=== PATIENT | male | born 1985 | race Caucasian/White ===

== ENCOUNTER 2022-11-12 14:18 | Emergency (ER) | payer BC ==
[~2022-11-12] VITALS: Ht 177.8 cm; Wt 136.4 kg
[2022-11-12 17:22] LABS: BASO % 0.1 % (0.0-1.0); HEMATOCRIT 47.1 % (42.0-52.0); HEMOGLOBIN 15.2 g/dl (13.5-17.5); LYMPH # 1.1 10^3/uL (1.5-5.0); LYMPH % 3.7 % (24.0-44.0); MEAN CORPUSCULAR HEMOGLOBIN 28.6 pg (27.0-33.0); MEAN CORPUSCULAR HGB CONC 32.3 g/dl (32.0-36.5); MEAN CORPUSCULAR VOLUME 88.5 fl (80.0-96.0); MONO % 5.8 % (2.0-8.0); NEUTROPHILS # 26.7 10^3/uL (1.5-8.5); NEUTROPHILS % 89.4 % (36.0-66.0); PLATELET COUNT, AUTOMATED 367 10^3/uL (150-450); RED BLOOD COUNT 5.32 10^6/uL (4.30-6.10); WHITE BLOOD COUNT 29.9 10^3/uL (4.0-10.0)
[2022-11-12 17:25] LABS: MONO # 1.7 10^3/uL (0.0-0.8)
[2022-11-12 17:40] LABS: BILIRUBIN,DIRECT 13.3 MG/DL (<0.4)
[2022-11-12 17:42] LABS: ALBUMIN 3.7 G/DL (3.2-5.2); ALKALINE PHOSPHATASE 577 U/L (46-116); ALT/SGPT 263 U/L (7.0-40); AST/SGOT 173 U/L (<34); BLOOD UREA NITROGEN 9 MG/DL (9-23); CALCIUM LEVEL 10.2 MG/DL (8.5-10.1); CARBON DIOXIDE LEVEL 27 MMOL/L (20-31); CHLORIDE LEVEL 92 MMOL/L (98-107); CREATININE FOR GFR 0.59 MG/DL (0.70-1.30); GLOMERULAR FILTRATION RATE > 60.0 (>60); GLUCOSE, FASTING 112 MG/DL (60-100); POTASSIUM SERUM 3.5 MMOL/L (3.5-5.1); SODIUM LEVEL 132 MMOL/L (136-145); TOTAL PROTEIN 8.6 G/DL (5.7-8.2)
[2022-11-12 17:55] LABS: BILIRUBIN,TOTAL 18.3 MG/DL (0.3-1.2)
[2022-11-12] MEDS ORDERED: ONDANSETRON 4MG 2ML VIAL IV ONE (18:05)
[2022-11-12] MEDS ORDERED: NS 1,000 ML IV ONE (18:05)
[2022-11-12] MEDS ORDERED: PIPERACILLIN/TAZOBACTAM SOD 3.375 GM in D5W MINI-BAG PLUS 50 ML IV ONE (18:05)
[2022-11-12] MEDS ORDERED: KETOROLAC 30 MG/ML 1ML VIAL IV ONE (18:05)
[2022-11-12 18:28] LABS: LIPASE 837 U/L (12-53)
[2022-11-12] MEDS ORDERED: ISOVUE-370 76% 100ML VIAL As Ordered ONE (18:48)
[2022-11-12 19:40] LABS: INR 1.29; PROTHROMBIN TIME 16.3 SECONDS (12.5-14.5)
[2022-11-12 19:41] LABS: PARTIAL THROMBOPLASTIN TIME 33.1 SECONDS (24.8-34.2)
[2022-11-12 19:54] LABS: MONO SCRN NEGATIVE (NEGATIVE)
[2022-11-12 20:09] LABS: HEPATITIS B SURFACE ANTIGEN NEGATIVE (NEGATIVE)
[2022-11-12 20:30] LABS: HEPATITIS B CORE ANTIBODY IGM NEGATIVE (NEGATIVE); HEPATITIS C VIRUS ABY INDEX 0.1 INDEX (<0.8)
[2022-11-12 21:02] LABS: RSV AMPLIFICATION NEGATIVE (NEGATIVE)
[2022-11-12] MEDS ORDERED: MORPHINE 2 MG/ML 1ML VIAL IV ONE (22:10)
[2022-11-12] MEDS: NS 1,000 ML IV SCH (22:45)
[2022-11-13] MEDS ORDERED: PIPERACILLIN/TAZOBACTAM SOD 3.375 GM in D5W MINI-BAG PLUS 50 ML IV ONE (01:50)
[2022-11-13] MEDS ORDERED: MORPHINE 2 MG/ML 1ML VIAL IV ONE (07:55)
[2022-11-13] MEDS: NS 1,000 ML IV SCH (08:05)
[2022-11-13] MEDS ORDERED: PIPERACILLIN/TAZOBACTAM SOD 3.375 GM in D5W MINI-BAG PLUS 50 ML IV SCH (09:00)
[2022-11-13 09:50] VITALS: BP 136/73
== END 2022-11-13 09:55 | disposition short-term general hospital (02) ==
LOC: M ED 18:38
DX: K85.90 Acute pancreatitis without necrosis or infection, unspecified (principal); K80.50 Calculus of bile duct without cholangitis or cholecystitis without obstruction; Z87.442 Personal history of urinary calculi
CPT/HCPCS: 74177; 76705; 80048; 80076; 81000; 81015; 83605; 83690; 85025; 85610; 85730; 86308; 86705; 86709; 86803; 87040; 87086; 87340; 87631; 96365; 96366; 96375; 96376; 99284; J2405; J2543